=== PATIENT | male | born 1975 ===

== ENCOUNTER 2017-07-27 06:51 | Emergency (ER) | payer OTHER ==
[2017-07-27 07:00] VITALS: BP 137/79; PULSE 65; RESP 18; TEMP 98.1; O2SAT 98; BMI 34.0
--- NOTE | 2017-07-27 07:47 | ED PDOC ---
HPI: Back Time Seen by Provider: 07/27/17 07:08 Chief Complaint (Nursing): Back Pain Chief Complaint (Provider): Lower Back Pain History Per: Patient History/Exam Limitations: no limitations Onset/Duration Of Symptoms: Days (x2) Current Symptoms Are (Timing): Still Present Additional Complaint(s): Norman Florence is a 41 year old male presenting to the ED for an evaluation of lower back pain occurring for 2 days prior to arrival. The patient states his pain was bilateral at first, radiating down his legs, but now the pain is localized to his right side. 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 He states his pain worsens with lifting. The patient took 2 tablets of Advil with minimal relief. He denies trauma, paresthesias, weakness, or any other medical problems. PMD: None Provided Past Medical History Reviewed: Historical Data, Nursing Documentation, Vital Signs Vital Signs: Last Vital Signs Temp 98.1 F 07/27/17 06:58 Pulse 65 07/27/17 06:58 Resp 18 07/27/17 06:58 BP 137/79 07/27/17 06:58 Pulse Ox 98 07/27/17 06:58 - Medical History PMH: No Chronic Diseases - Family History Family History: States: Unknown Family Hx - Home Medications Home Medications: Ambulatory Orders Medication Instructions Recorded Cyclobenzaprine [Cyclobenzaprine 10 mg PO TID PRN #15 tab 07/27/17 HCl] Naproxen [Naprosyn] 500 mg PO BID PRN #15 tablet 07/27/17 - Allergies Allergies/Adverse Reactions: Allergies Allergy/AdvReac Type Severity Reaction Status Date / Time No Known Allergies Allergy Verified 07/27/17 07:16 Review of Systems ROS Statement: Except As Marked, All Systems Reviewed And Found Negative Musculoskeletal: Positive for: Back Pain (lower back pain radiating down to legs ). Negative for: Other (no paresthesia) Neurological: Negative for: Weakness Physical Exam - Reviewed Nursing Documentation Reviewed: Yes Vital Signs Reviewed: Yes - Physical Exam Appears: Positive for: Non-toxic, No Acute Distress Head Exam: Positive for: ATRAUMATIC, NORMOCEPHALIC Skin: Positive for: Normal Color, Warm, Dry Eye Exam: Positive for: Normal appearance Neck: Positive for: Normal Cardiovascular/Chest: Positive for: Regular Rate, Rhythm Respiratory: Positive for: Normal Breath Sounds. 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 Negative for: Motor/Sensory Deficits - ECG O2 Sat by Pulse Oximetry: 98 (RA) Pulse Ox Interpretation: Normal Medical Decision Making Medical Decision Making: Time: 07:08 Impression: Lower back pain Plan: * [RAD] Lumbar Spine * Flexeril 10 mg PO * Toradol 30 mg IM * Reevaluation Accession No. : [id number] Patient Name / ID : STUART BETANCOURT / [id number] Exam Date : 07/27/2017 07:55:25 ( Approved ) Study Comment : Sex / Age : M / 41Y Creator : Delores PEÑA MD Dictator : Delores PEÑA MD [employer] Research Analyst : Picking Belt Operator : Delores PEÑA MD Approver2 : Report Date : 07/27/2017 10:17:11 My Comment : PROCEDURE: Radiographs of the Lumbar Spine. HISTORY: R paralumbar tenderness COMPARISON: No prior. FINDINGS: BONES: There is normal alignment of the lumbar vertebral bodies. Lumbar lordosis is maintained. Vertebral bodies are normal in height. There is no acute fracture , spondylolysis or spondylolisthesis. Bone mineralization is normal. DISC SPACES: There is mild degenerative disc disease at L4-5 and L5-S1 with anterior spurring , mild reduced disc heights and facet arthropathy, worse at L5-S1. OTHER FINDINGS: There are surgical clips in the right lower quadrant likely related to appendectomy. There are no pathologic soft tissue calcifications. IMPRESSION: No acute fracture, spondylolysis or spondylolisthesis. Mild degenerative disc disease at L4-5 and L5-S1, worse at L5-S1. Scribe Attestation: Documented by Lexi Goodman, acting as a scribe for Radha Roth MD. Provider Scribe Attestation: All medical record entries made by the Scribe were at my direction and personally dictated by me. I have reviewed the chart and agree that the record accurately reflects my personal performance of the history, physical exam, medical decision making, and the department course for this patient. I have also personally directed, reviewed, and agree with the discharge instructions and disposition. Disposition - Clinical Impression Clinical Impression: Low back pain - Disposition Disposition: Routine/Home Disposition Time: 10:20 Condition: STABLE Additional Instructions: FOLLOW-UP WITH PMD WITHIN 2 DAYS FOR REEVALUATION. Prescriptions: Cyclobenzaprine [Cyclobenzaprine HCl] 10 mg PO TID PRN #15 tab PRN Reason: Pain Naproxen [Naprosyn] 500 mg PO BID PRN #15 tablet PRN Reason: Pain, Moderate (4-7) Forms: AT Internet (Sudanese) Print Language: KYRGYZ
--- NOTE | 2017-07-27 10:18 | RAD ---
PROCEDURE: Radiographs of the Lumbar Spine. HISTORY: R paralumbar tenderness COMPARISON: No prior. FINDINGS: BONES: There is normal alignment of the lumbar vertebral bodies. Lumbar lordosis is maintained. Vertebral bodies are normal in height. There is no acute fracture, spondylolysis or spondylolisthesis. Bone mineralization is normal. DISC SPACES: There is mild degenerative disc disease at L4-5 and L5-S1 with anterior spurring, mild reduced disc heights and facet arthropathy, worse at L5-S1. OTHER FINDINGS: There are surgical clips in the right lower quadrant likely related to appendectomy. There are no pathologic soft tissue calcifications. IMPRESSION: No acute fracture, spondylolysis or spondylolisthesis. Mild degenerative disc disease at L4-5 and L5-S1, worse at L5-S1.
== END 2017-07-27 11:47 | disposition home or self-care (01) ==
LOC: H.ER 06:51
DX: M54.5 Low back pain (principal)
CPT/HCPCS: 72114; 96372; 99283; J1885